=== PATIENT | male | born 1985 | race American Indian/Alaskan Native ===

== ENCOUNTER 2018-03-13 01:11 | Emergency (ER) | payer OTHER ==
[~2018-03-13] VITALS: Ht 177.8 cm; Wt 118.2 kg
[2018-03-13 02:00] VITALS: BP 116/74
== END 2018-03-13 02:04 | disposition home or self-care (01) ==
LOC: ER 01:12
DX: R00.0 Tachycardia, unspecified (principal)
CPT/HCPCS: 93005; 99283